=== PATIENT | female | born 1970 | race Caucasian/White ===

== ENCOUNTER 2023-01-08 11:24 | Emergency (ER) | payer OTHER ==
[2023-01-08 11:47] VITALS: BP 120/76; O2SAT 99
--- NOTE | 2023-01-08 12:21 | XRAY Report ---
PROCEDURE: Ribs w/PA Chest LT INDICATIONS: Trauma TECHNIQUE: 3 views of the left ribs were acquired, along with a single view chest. COMPARISON: None. FINDINGS: Surgical changes and devices: None. Bones and chest wall: No fractures or dislocations. No suspicious bony lesions. Overlying soft tis sues appear unremarkable. Lungs and pleura: No pleural effusions or pneumothorax. Lungs appear clear. Mediastinum: Mediastinal contours appear normal. Heart size is normal. IMPRESSION: No displaced rib fracture or pneumothorax. Reviewed by: Shahbaz Upton on 01/08/2023 12:20 PM PST Approved by: Shahbaz Upton on 01/08/2023 12:20 PM [facility] Station ID: [id number]
--- NOTE | 2023-01-08 13:55 | ED Physician Documentation ---
History of Present Illness - Stated complaint Stated Complaint: FALL RIB PX - Chief complaint Chief Complaint: General - History obtained from History obtained from: Patient (Fell down a flight of stairs last night and injured her left chest wall. No other injuries. Pain is moderate and declines prescription pain medication.) PD PAST MEDICAL HISTORY - Past Medical History Past Medical History: No - Past Surgical History Past Surgical History: No - Present Medications Home Medications: Ambulatory Orders Medication Instructions Recorded Confirmed No Known Home Medications 01/08/23 01/08/23 - Allergies Allergies/Adverse Reactions: Allergies Allergy/AdvReac Type Severity Reaction Status Date / Time aspirin Allergy Anaphylaxis Verified 01/08/23 11:43 Penicillins AdvReac Rash Verified 01/08/23 11:43 - Social History Does the pt smoke?: No Smoking Status: Never smoker PD ED PE NORMAL - Vitals Vital signs reviewed: Yes - General General: Alert and oriented X 3, No acute distress - HEENT HEENT: PERRL, EOMI - Neck Neck: Supple, no meningeal sign, No bony TTP - Cardiac Cardiac: RRR, No murmur - Respiratory Respiratory: No respiratory distress, Clear bilaterally, Other (Mild tenderness near rib 9 anterior axillary line on the left) - Abdomen Abdomen: Non tender Results - Vitals Vitals: Vital Signs - 24 hr 01/08/23 11:35 Temperature 36.7 C Heart Rate 62 Respiratory 16 Rate Blood Pressure 120/76 O2 Saturation 99 - Rads (name of study) Left rib and chest series is negative Relevant Findings:: Final report received, EMP independent interpretation of test Departure - Departure Disposition: 01 Home, Self Care Clinical Impression: Chest wall contusion Condition: Good Record reviewed to determine appropriate education?: Yes Instructions: ED Contusion Vs Minor Fx Rib Comments: As discussed, the x-rays look okay, but could still be a hairline fracture in the rib. Tylenol and/or ibuprofen for pain, return for new or worsening symptoms.
== END 2023-01-08 14:27 | disposition home or self-care (01) ==
LOC: ED 11:24
DX: S20.212A Contusion of left front wall of thorax, initial encounter (principal); W10.9XXA Fall (on) (from) unspecified stairs and steps, initial encounter
CPT/HCPCS: 99283